=== PATIENT | female | born 1940 | race Caucasian/White ===

== ENCOUNTER → 2021-07-12 | Outpatient (CLI) | payer MEDICARE ==
[~2021-07-12] MED LIST: ARICEPT5 MG PO; BISACODYL5 MG PO; CLARITIN10 MG PO; CORTIZONE-1028 G1 TOP; DEPAKOTE ER250 MG PO; FERROUS SULFAT325 MG PO; GLUCAGON EMERGEN1 MG IM; IMODIUM A-1 MG/7.5 M PO; LASIX20 MG PO; LEVOTHYROXINE88 MCG PO; MAALOX MAXIMUM355 ML PO; MILK OF MA2400 MG/10 PO; MUCINEX DM ER1 EACH PO; MULTI-VITAMIN1 EACH PO; NEURONTIN100 MG PO; NYSTATIN1 EAC9 TOP; OXYBUTYNIN CHLOR5 M1 PO; PANTOPRAZOLE SO40 MG PO; PEPTO-BISM262 MG/15 PO; POTASSIUM CHLO20 ME1 PO; REGLAN5 MG PO; SENNA LAX8.6 MG PO; ULTRAM50 MG PO; VITAMIN C500 MG PO; VITAMIN D310 MCG; VITAMIN D3250 MCG PO; ZOFRAN4 MG PO; ZOLOFT100 MG PO
[2021-07-12 10:47] LABS: BASOPHILS % 0.5 % (0.0-1.0); EOSINOPHILS # (AUTO) 0.2 (0.0-0.4); EOSINOPHILS % 3.3 % (0.0-6.0); HEMATOCRIT 37.5 % (34.2-44.1); HEMOGLOBIN 12.1 g/dL (12.0-16.0); LYMPHOCYTES # (AUTO) 1.5 (1.0-3.2); LYMPHOCYTES % 27.1 % (18.0-39.1); MEAN CORPUSCULAR HEMOGLOBIN 30.1 pg (28-32); MEAN CORPUSCULAR HGB CONC 32.3 g/dL (31-35); MEAN CORPUSCULAR VOLUME 93.3 fL (81-99); MONOCYTES # (AUTO) 0.5 (0.2-0.8); MONOCYTES % 9.5 % (4.4-11.3); NEUTROPHILS # (AUTO) 3.2 (2.1-6.9); NEUTROPHILS % 59.4 % (38.7-80.0); PLATELET COUNT 181 x10e3/uL (140-360); RED BLOOD COUNT 4.02 x10e6/uL (3.6-5.1); RED CELL DISTRIBUTION WIDTH 12.6 % (11.7-14.4)
== END ==
LOC: RAD 09:48 → OR 09:48 → EDSTATUS 12:30
PROVIDERS: ATTEND Internal Medicine Gastroenterology
DX: R10.10 Upper abdominal pain, unspecified (principal); R14.0 Abdominal distension (gaseous); K21.9 Gastro-esophageal reflux disease without esophagitis; Z53.8 Procedure and treatment not carried out for other reasons; U07.1 COVID-19
CPT/HCPCS: 36415; 82948; 85025; 93005; U0002